=== PATIENT | female | born 1970 | race Caucasian/White ===

== ENCOUNTER 2024-05-15 04:02 | Day surgery (SDC) | payer BC, OTHER ==
[2024-05-11 11:15] VITALS: BMI 25.0
[2024-05-15] MEDS ORDERED: LIDOCAINE HCL/PF 2% SDV 5ML VIAL ONE (13:28)
[2024-05-15] MEDS ORDERED: PROPOFOL 20 ML ONE (13:28)
[2024-05-15] MEDS ORDERED: MIDAZOLAM HCL 2 MG/2 ML SINGLE DOSE VIAL ONE (13:28)
[2024-05-15] MEDS ORDERED: ONDANSETRON 4 MG/2 ML VIAL IVPUSH PRN ×2 (13:41→14:16)
[2024-05-15] MEDS ORDERED: oxyCODONE HCL 5 MG TABLET PO PRN (13:41)
[2024-05-15] MEDS ORDERED: IBUPROFEN 800 MG/8 ML IJ IVPB PRN (13:41)
[2024-05-15] MEDS ORDERED: IBUPROFEN 600 MG TABLET (FP) PO PRN (13:41)
[2024-05-15] MEDS ORDERED: ELECTROLYTE-148 SOLN 1,000 ML IV SCH (13:45)
[2024-05-15] MEDS ORDERED: DEXAMETHASONE SOD PHOSPHATE 4 MG/1 ML VIAL ONE (13:47)
[2024-05-15] MEDS ORDERED: ceFAZolin SODIUM 1 GM VIAL ONE (13:47)
[2024-05-15] MEDS ORDERED: ONDANSETRON 4 MG/2 ML VIAL ONE (13:57)
[2024-05-15] MEDS ORDERED: KETOROLAC TROMETHAMINE 30 MG/1 ML VIAL ONE (13:58)
[2024-05-15] MEDS ORDERED: LACTATED RINGERS SOLUTION 1,000 ML IV SCH (14:30)
[2024-05-15 15:46] VITALS: RESP 20
[2024-05-15 16:34] VITALS: BP 143/68; PULSE 60; TEMP 97.5
== END 2024-05-15 16:15 | disposition home or self-care (01) ==
LOC: JASU-SURG 04:02
PROVIDERS: ATTEND Obstetrics & Gynecology
PROC: 0UPD8HZ Removal of Contraceptive Device from Uterus and Cervix, Via Natural or Artificial Opening Endoscopic (ICD-10-PCS; principal; 2024-05-15 13:00)
DX: Z30.432 Encounter for removal of intrauterine contraceptive device (principal)
CPT/HCPCS: 81025; 88300-TC; 88305-TC; 94760